=== PATIENT | female | born 1990 | race Two or more races ===

== ENCOUNTER 2022-10-23 11:37 | Outpatient (OUT) | payer SELFPAY ==
[2022-10-24 10:09] LABS: Uric Acid, Urine 53.8 mg/dL (Not Estab.)
[2022-10-31 10:13] LABS: Summary Report (Summary) FINAL (.)
== END 2022-10-23 11:38 | disposition home or self-care (01) ==
LOC: LAB 11:40
PROVIDERS: PCP Nurse Practitioner Family; Visit Provider Nurse Practitioner Family
DX: Z79.899 Other long term (current) drug therapy (principal)
CPT/HCPCS: 80326; 80331; 80334; 80337; 80338; 80341; 80344; 80346; 80348; 80353; 80354; 80355; 80357; 80358; 80359; 80360; 80361; 80364; 80365; 80366; 80367; 80368; 80370; 80371; 80372; 80373; 80377; 82570; 83992; 84560

== ENCOUNTER 2023-02-18 16:30 | Outpatient (REF) | payer OTHER, SELFPAY ==
[2023-02-19 15:43] LABS: Occult Blood Negative
== END 2023-02-18 16:31 | disposition home or self-care (01) ==
LOC: LAB 16:30
PROVIDERS: PCP Nurse Practitioner Family; Visit Provider Nurse Practitioner Family
DX: R19.5 Other fecal abnormalities (principal)
CPT/HCPCS: G0328

== ENCOUNTER 2023-04-10 11:38 | Outpatient (OUT) | payer OTHER, SELFPAY ==
--- OUTSIDE RECORDS SUMMARY | 2023-04-10 11:55 | XMS_ITS | CCD ---
Author Name Unknown Address [address] [facility] [address] [place] [address] Organization [facility] Care Team Providers Care Roller Skater Name Role Phone YSABEL HOYOS Admitting Unavailable YSABEL HOYOS Attending Unavailable YSABEL HOYOS Consulting Unavailable YSABEL HOYOS Admitting Unavailable YSABEL HOYOS Attending Unavailable DR SANTA DUMONT V Consulting Unavailable YSABEL HOYOS Consulting Unavailable Allergies Allergy Classification Reported Allergen(s) Allergy Type Date of Onset Reaction(s) Facility (1 source) Penicillins Drug allergy (disorder) 05-14-2015 The [facility] Repository Problems Active Problems Problem Classification Problem Date Documented Da te Episodic/Chronic Disorders of teeth and jaw (4 sources) Jaw pain; Translations: [JAW PAIN] Onset: 12-21-2021 Episodic Other nervous system disorders (1 source) Paresthesia of skin; Translations: [PARESTHESIA OF SKIN] Onset: 12-24-2021 Episodic Unclassified (2 sources) CONTACT W/AND (SUSP) EXPOS COVID-19; Translations: [CONTACT W/AND (SUSP) EXPOS COVID-19] Onset: 03-11-2021 Viral infection (1 source) COVID-19; Translations: [COVID-19] Onset: 03-11-2021 Past or Other Problems Problem Classification Problem Date Documented Da te Episodic/Chronic Unclassified (1 source) CONTACT W/AND (SUSP) EXPOS COVID-19; Translations: [CONTACT W/AND (SUSP) EXPOS COVID-19] Onset: 03-07-2021 Results Test Name Value Interpretation Reference Range Facil ity CT HEAD WO W CONon CT HEAD WO W CON \EXAMINATION: CT HEAD WO W CON HISTORY: Jaw pain COMPARISON: No relevant comparison available. TECHNIQUE: Axial images were obtained without and with IV contrast. Dose reduction techniques were achieved by using automated exposure control and/or adjustment of mA and/or kV according to patient size and/or use of iterative reconstruction technique. FINDINGS: BRAIN: Minimal generalized supratentorial atrophy. No acute parenchymal hemorrhage or mass. Internal anterior falx, bilateral choroid plexus and pineal calcifications CSF SPACES: No hydrocephalus, subarachnoid hemorrhage, or mass. Appropriate for age. SKULL: No fracture, mass, or other significant visible lesion. SINUSES: No significant mucosal thickening or fluid on the limited views. ORBITS: No appreciable abnormality on the limited views. OTHER: Normal postcontrast opacification IMPRESSION: No acute abnormality Electronically authenticated by: S[place]ONT Date: 2021-12-22 07:26 Normal The [facility] Covid-19 PCR (CVDTB)on SARS-CoV-2 (COVID-19) RNA INDIA+probe Ql (Unsp spec) Detected Critically abnormal NOT DETECTED The [facility] Comment on above: Result Comment: This test is not yet gelacio roved or cleared by the [place] FDA. When there are no FDA-approved or cleared tests available, and other criteria are met, FDA can make tests available under an emergency access mechanism called an Emergency Use Authorization (EUA). The EUA for this test is supported by the [facility] Worker of Health and Human Service's (HHS's) declaration that circumstances exist to justify the emergency use of in vitro diagnostics for the detection and/or diagnosis of the virus that causes COVID-19. This EUA will remain in effect (meaning this test can be used) for the duration of the COVID-19 declaration justifying emergency of IVDs, unless it is terminated or revoked by FDA (after which the test may no longer be used). Performed By: #### C [facility] #### [facility] Laboratory [address] [place] [address] Dr. Tyler March Encounters Encounter Date Encounter Type Care Provider Facility Start: 12-21-2021 End: 12-22-[address] [facility] Facility:H1 Start: 03-07-2021 End: 03-07-[address] [facility] Facility: Payers Date Payer Category Payer Unknown [id number] 04.19.83 [id number] 1990 Unknown [id number] 04.19.83 [id number] 1959 Unknown [id number] 1959 Unknown [id number] Summary Purpose Family History No Family History Records Found Advance Directives No Advanced Directives Records Found Additional Source Comments INFORMATION SOURCE (unrecogn ized section and content) DATE CREATED AUTHOR 12/26/2021 The [facility] FOR RECORDS PERTAINING TO PATIENTS WHO ARE OR HAVE BEEN ENROLLED IN A CHEMICAL DEPENDENCY/SUBSTANCEABUSE PROGRAM, SOME INFORMATION MAY BE OMITTED. This clinical summary was aggregated from multiple sources. Caution should be exercised in using it in the provision of clinical care. This summary normalizes information from multiple sources, and as a consequence, information in this document may materially change the coding, format and clinical context of patient data. In addition, data may be omitted in some cases. CLINICAL DECISIONS SHOULD BE BASED ON THE PRIMARY CLINICAL RECORDS. [facility] [facility]. provides no warranty or guarantee of the accuracy or completeness of information in this document.
[2023-04-10 12:31] LABS: Basophils Percent Auto 0.4 % (0.2-2.0); Eosinophils Absolute Auto 0.1 10^3/uL (0.0-0.7); Eosinophils Percent Auto 1.6 % (0.9-7.0); Hematocrit 37.2 % (36.0-48.0); Hemoglobin 12.5 g/dL (12.0-16.0); Immature Granulocytes Abs Auto 0.02 10^3/uL (0.00-0.03); Immature Granulocytes Pct Auto 0.3 % (0.0-0.5); Lymphocytes Absolute Auto 2.3 10^3/uL (1.2-3.8); Lymphocytes Percent Auto 31.2 % (20.5-60.0); Mean Corpuscular HGB Conc 33.6 g/dL (29.9-35.2); Mean Corpuscular Hemoglobin 29.1 pg (26.7-34.0); Mean Corpuscular Volume 86.7 fL (81.0-99.0); Mean Platelet Volume 10.1 fL (9.5-13.5); Monocytes Absolute Auto 0.4 10^3/uL (0.3-0.8); Monocytes Percent Auto 5.9 % (1.7-12.0); Neutrophils Absolute Auto 4.4 10^3/uL (1.4-6.5); Neutrophils Percent Auto 60.6 % (43.0-75.0); Platelet Count 291 10^3/uL (150-450); Red Blood Count 4.29 10^6/uL (4.20-5.40); Red Cell Distribution Width 13.6 % (11.0-15.0); White Blood Count 7.3 10^3/uL (4.0-11.0)
[2023-04-10 12:45] LABS: Estimated Average Glucose 94 mg/dL; Glycohemoglobin A1C 4.9 % (4.5-6.2)
[2023-04-10 13:03] LABS: Alanine Aminotransferase 101 U/L (14-59); Albumin Globulin Ratio 0.9; Albumin Level 3.6 g/dL (3.4-5.0); Alkaline Phosphatase 114 U/L (46-116); Aspartate Amino Transferase 43 U/L (15-37); Bilirubin Total 0.4 mg/dL (0.2-1.0); Calcium 8.9 mg/dL (8.5-10.1); Carbon Dioxide 27.9 mmol/L (21.0-32.0); Chloride 104 mmol/L (98-107); Chol HDL Ratio 2.7; Cholesterol 173 mg/dL (<=200); Estimated GFR (African America >60 (>=60); Estimated GFR (Non-African Ame >60 (>=60); Free T3 3.07 pg/mL (2.18-3.98); Globulin 4.2 g/dL; Glucose 90 mg/dL (74-106); HDL Cholesterol 65 mg/dL (40-60); Potassium 3.9 mmol/L (3.5-5.1); Sodium 139 mmol/L (136-145); Thyroid Stimulating Hormone 2.283 uIU/mL (0.358-3.740); Total Protein 7.8 g/dL (6.4-8.2); Triglycerides 48 mg/dL (<=150); VLDL CHOLESTEROL 9.6 mg/dL
[2023-04-11 11:09] LABS: Insulin 43.5 uIU/mL (2.6-24.9)
== END 2023-04-10 11:39 | disposition home or self-care (01) ==
LOC: LAB 11:38
PROVIDERS: PCP Nurse Practitioner Family; Visit Provider Nurse Practitioner Family
DX: Z00.00 Encounter for general adult medical examination without abnormal findings (principal)
CPT/HCPCS: 36415; 80053; 80061; 82306; 83036; 83525; 83540; 84436; 84443; 84481; 85025

== ENCOUNTER 2023-04-22 10:31 | Outpatient (OUT) | payer OTHER, SELFPAY ==
--- NOTE | 2023-04-22 10:34 | US_ITS ---
The [address] [address] Patient Name: WOJCIECH BANGURA MRN: [id number] date: 1990 Sex: F Assigned Patient Location: US Current Patient Location: US Accession/Order Number: [id number] Exam Date: 04/22/2023 10:35 Report Date: 04/22/2023 11:59 At the request of: YSABEL HOYOS Procedure: US abdomen complete EXAM: US abdomen complete HISTORY: abdominal discomfort R10.9 COMPARISON: None. TECHNIQUE: Real-time ultrasound imaging of the abdomen. Findings: The visualized portions of the aorta and IVC are unremarkable. Evaluation of pancreas is limited due to overlying bowel gas. The visualized portions are unremarkable. The hepatic parenchyma appears coarsened. No focal intrahepatic mass. The main portal vein is patent and demonstrates hepatopedal flow. The gallbladder is fluid-filled and unremarkable without evidence of stones, wall thickening or pericholecystic fluid. The technologist reports a negative sonographic Ramos's sign. No biliary ductal dilatation. The common bile duct measures 0.4 cm. The right and left kidneys measure 10.8 and 10.0 cm. There is good corticomedullary differentiation bilaterally. No renal stones or collecting system dilatation. No focal mass or perinephric fluid collection. The spleen is not enlarged measuring 9.8 cm. Echogenic parenchymal foci may relate to calcifications from prior granulomatous disease. No free abdominal fluid. Impression 1. Coarsened hepatic parenchymal echotexture can be seen with diffuse hepatocellular disease such as fatty infiltration. Electronically authenticated by: LACIE VENTURA Date: 04/22/2023 11:59
--- OUTSIDE RECORDS SUMMARY | 2023-04-22 10:34 | XMS_ITS | CCD ---
Author Name Unknown Address [address] [facility] [address] [place] [address] Organization [facility] Care Team Providers Care Paramedic Name Role Phone YSABEL HOYOS Admitting Unavailable YSABEL HOYOS Attending Unavailable YSABEL HOYOS Consulting Unavailable YSABEL HOYOS Admitting Unavailable YSABEL HOYOS Attending Unavailable DR [place] V Consulting Unavailable YSABEL HOYOS Consulting Unavailable Allergies Allergy Classification Reported Allergen(s) Allergy Type Date of Onset Reaction(s) Facility (1 source) Penicillins Drug allergy (disorder) 05-14-2015 The [facility] Repository Problems Active Problems Problem Classification Problem [...] [place] Date: 2021-12-22 07:26 Normal The [facility] Covid-19 PCR (CVDTB)on SARS-CoV-2 (COVID-19) RNA INDIA+probe Ql (Unsp spec) Detected Critically abnormal NOT DETECTED The [facility] Comment on above: Result Comment: This test is not yet gelacio roved or cleared by the [place] FDA. When there are no FDA-approved or cleared tests available, and other criteria are met, FDA can make tests available under an emergency access mechanism called an Emergency Use Authorization (EUA). The EUA for this test is supported by the Pioneer of Health and Human Service's (HHS's) declaration [...] longer be used). Performed By: #### C [facility] #### [facility] [address] [place] [address] Dr. Tyler March Encounters Encounter Date Encounter Type Care Provider Facility Start: 12-21-2021 End: 12-22-[address] [facility] Facility:H1 Start: 03-07-2021 End: 03-07-[address] [facility] Facility: Payers Date Payer Category Payer Unknown [id number] 04.19.83 [id number] 1990 Unknown [id number] 04.19.83 [id number] 1959 Unknown [id number] 1959 Unknown [id number] Summary Purpose Family History No Family History Records Found Advance Directives No Advanced Directives Records Found Additional Source Comments INFORMATION SOURCE (unrecogn ized section and content) DATE CREATED AUTHOR 12/26/2021 The [facility] FOR RECORDS PERTAINING TO PATIENTS WHO ARE [...] BE BASED ON THE PRIMARY CLINICAL RECORDS. [facility] [employer] [facility]. provides no warranty or guarantee of the accuracy or completeness of information in this document.
== END 2023-04-22 10:32 | disposition home or self-care (01) ==
LOC: US 10:31
PROVIDERS: PCP Nurse Practitioner Family; Visit Provider Nurse Practitioner Family
DX: R10.9 Unspecified abdominal pain (principal)
CPT/HCPCS: 76700

== ENCOUNTER 2023-07-01 07:30 | Outpatient (OUT) | payer OTHER, SELFPAY ==
--- OUTSIDE RECORDS SUMMARY | 2023-07-01 07:34 | XMS_ITS | CCD ---
Author Organization [facility] Care Team Providers Care Press Supervisor Name Role Phone MONTSE MATHEW Admitting Unavailable MONTSE MATHEW Attending Unavailable MONTSE MATHEW Consulting Unavailable MONTSE MATEHW Admitting Unavailable MONTSE MATHEW Attending Unavailable DR S[place]UM[place] V Consulting Unavailable MONTSE MATHEW Consulting Unavailable [place] SALES AND MARKETING ENGINEER-C Montse Caldwell Primary Care Provider 1( [phone] ANA Olvera Attending Provider Montse Mathew Primary Care Unavailable Chad Olvera Attending Unavailable Chad Olvera Admitting Unavailable Allergies Allergy Classification Reported Allergen(s) Allergy Type Date of Onset Reaction(s) Facility (1 source) Penicillins Drug allergy (disorder) 05-14-2015 The [facility] Repository (1 source) Penicillins Drug allergy (disorder) 06-06-2023 [facility] Repository Medications Current Medications Medication Drug Class(es) Dates Sig (Normalized) Sig (Original) amphetamine aspartate 5 mg / amphetamine sulfate 5 mg / dextroamphetamine saccharate 5 mg / dextroamphetamine sulfate 5 mg oral tablet (2 sources) Central Nervous System Stimulant Start: 4 take 20 mg by mouth once daily Dextroamphetamine-Amphe tamine Active 20 MG PO Daily June 06, 2023 12:00am medroxyPROGESTERone (2 sources) Progestin Start: 4 Medroxyprogesterone Active MG IM June 06, 2023 12:00am Problems Active Problems Problem Classification Problem Date Documented Da te Episodic/Chronic Disorders of teeth and jaw (4 sources) Jaw pain; Translations: [JAW PAIN] Onset: 12-21-2021 Episodic Other liver diseases (2 sources) Steatosis of liver; Translations: [Fatty (change of) liver, not elsewhere classified] 06-06-2023 Chronic Other liver diseases (3 sources) Fatty (change of) liver, not elsewhere classified; Translations: [Other chronic nonalcoholic liver disease] Onset: 06-18-2023 06-06-2023 Chronic Other nervous system disorders (1 source) Paresthesia [...] [place] Date: 2021-12-22 07:26 Normal The [facility] Covid-19 PCR ([facility]on SARS-CoV-2 (COVID-19) RNA INDIA+probe Ql (Unsp spec) Detected Critically abnormal NOT DETECTED The [facility] Comment on above: Result Comment: This test is not yet gelacio roved or cleared by the [place] FDA. When there are no FDA-approved or cleared tests available, and other criteria are met, FDA can make tests available under an emergency access mechanism called an Emergency Use Authorization (EUA). The EUA for this test is supported by the [place] of Health and Human Service's (HHS's) declaration [...] longer be used). Performed By: #### C [facility] #### [facility] [address] [place] [address] Dr. Tyler March Vital Signs Date Time Vital Sign Value Performing Clinician Faci lity 06-06-2023 10:07-0400 Body height 165.1 cm [facility] 06-06-2023 10:07-0400 Body mass index (BMI) [Ratio] 38.6 kg/m2 [facility] 06-06-2023 10:07-0400 Body weight 105.23 kg [facility] 06-06-2023 10:07-0400 Diastolic blood pressure 79 mm[Hg] [facility] 06-06-2023 10:07-0400 Heart rate 75 /min [facility] 06-06-2023 10:07-0400 Systolic blood pressure 117 mm[Hg] [facility] Encounters Encounter Date Encounter Type Care Provider Facility Start: 06-18-2023 End: 06-18-2023 ambulatory Montse Mathew Facility:[facility] Start: 06-18-2023 End: 06-18-2023 ambulatory SALES AND MARKETING ENGINEER-C Montse Mathew Work Phone: [facility] Work Phone: Start: 06-18-2023 End: 06-18-2023 Patient encounter procedure SALES AND MARKETING ENGINEER-C Montse Mathew Work Phone: [facility] Work Phone: Start: 06-06-2023 End: 06-06-2023 ambulatory [facility] Work Phone: Start: 06-06-2023 End: 06-06-2023 Patient encounter procedure [facility] Work Phone: Start: 04-26-2023 Non-patient / Non-visit [facility] Work Phone: Start: 12-21-2021 End: 12-22-2021 ambulatory MONTSE QUINCY Facility:H1 Start: 03-07-2021 End: 03-07-2021 ambulatory MONTSE MATHEW Facility:H1 Procedures Date Procedure Procedure Detail Performing Clinician Start: 06-18-2023 Ultrasound elastogra phy of liver SALES AND MARKETING ENGINEER-C Montse Mathew Work Phone: Plan of Treatment Date Care Activity Detail Author Start: 06-18-2023 [facility] Actin smooth muscle IgG Ab [Units/volume] in Serum [facility] Alpha 1 antitrypsin [Mass/volume] in Serum or Plasma [facility] Cefuroxime free [Mas s/volume] in Serum or Plasma [facility] Ceruloplasmin [Mass/ volume] in Serum or Plasma [facility] Hepatic function panel [facility] Hepatitis B core ant ibody measurement [facility] Hepatitis B virus gresham rface Ab [Presence] in Serum [facility] Payers Date Payer Category Payer Private Health Insurance [id number] 2023 Self-pay 1990 Unknown [id number] 2.16.84 [id number] 1990 Unknown [id number] [id number] 1959 Unknown [id number] 1959 Unknown [id number] Unknown [id number] Social History Date Type Detail Facility Start: 06-06-2023 Tobacco smoking stat us [facility] Never smoked tobacco (finding) [facility] Start: 1990 Sex Assigned At Female F [facility] Goals Date Patient Goal Desired Activity /State Evaluation note Note Date & Type Note Facility Evaluation note Diagnosis Onset Date Fatty liver acute [facility] Work Phone: Summary Purpose Family History No Family History Records Found Relationship Condition Age at Onset Recorded Date/T eloy Not Specified Hepatic cirrhosis Unknown Advance Directives No Advanced Directives Records Found Advance Directive Response Recorded Date/ Time Advance Directives No May 09 10:58am Chief Complaint and Reason for Visit Chief Complaint REF BY MONTSE MATHEW FOR FATTY LIVER Reason for Visit Fatty liver Chief Complaint REF BY MONTSE MATHEW FOR FATTY LIVER fatty liver Reason for Visit Fatty liver Additional Source Comments INFORMATION SOURCE (unrecogn ized section and content) DATE CREATED AUTHOR 12/26/2021 [facility] DATE CREATED AUTHOR AUTHOR'S ORGANIZ ATION 06/29/2023 [facility] Care Teams (unrecognized sec tion and content) Team Status: Active Member Role Status Dates RUSTY Rodriguez Primary Care Provider Active Team Status: Active Member Role Status Dates Faisal Bowen MD Attending Provider Active S tart: April 26, 2023 Team Status: Inactive Member Role Status Dates Chad Olvera APRN Attending Provider Active Start: June 06, 2023 End: June 06, 2023 RUSTY Rodriguez Primary Care Provider Active Start: June 06, 2023 End: June 06, 2023 Team Status: Inactive Member Role Status Dates RUSTY Rodriguez Primary Care Provider Active Start: June 18, 2023 End: June 18, 2023 Chad Olvera APRN Attending Provider Active Start: June 18, 2023 End: June 18, 2023 Goals (unrecognized section and content) Goals may be documented in a n alternate section FOR RECORDS PERTAINING TO PATIENTS WHO ARE [...] BE BASED ON THE PRIMARY CLINICAL RECORDS. [facility] [employer] [facility]. provides no warranty or guarantee of the accuracy or completeness of information in this document.
[2023-07-01 08:11] LABS: Alanine Aminotransferase 29 U/L (14-59); Albumin Globulin Ratio 0.9; Albumin Level 3.5 g/dL (3.4-5.0); Alkaline Phosphatase 99 U/L (46-116); Anion Gap 13.6; Aspartate Amino Transferase 20 U/L (15-37); BUN Creatinine Ratio 19.2; Bilirubin Total 0.3 mg/dL (0.2-1.0); Calcium 9.1 mg/dL (8.5-10.1); Carbon Dioxide 25.5 mmol/L (21.0-32.0); Chloride 106 mmol/L (98-107); Estimated GFR (African America >60 (>=60); Estimated GFR (Non-African Ame >60 (>=60); Globulin 3.8 g/dL; Glucose 90 mg/dL (74-106); Potassium 4.1 mmol/L (3.5-5.1); Sodium 141 mmol/L (136-145); Total Protein 7.3 g/dL (6.4-8.2)
== END 2023-07-01 07:31 | disposition home or self-care (01) ==
LOC: LAB 07:31
PROVIDERS: PCP Nurse Practitioner Family; Visit Provider Nurse Practitioner Family
DX: R79.89 Other specified abnormal findings of blood chemistry (principal)
CPT/HCPCS: 36415; 80053